=== PATIENT | female | born 1955 | race Caucasian/White ===

== ENCOUNTER → 2017-08-04 09:25 | Outpatient (CLI) | payer OTHER, MEDICAID, SELFPAY ==
[2017-08-04 10:02] LABS: Add Manual Diff / Slide Review NO; Basophils Percent Auto 0.4 % (0-2); Eosinophils Percent Auto 0.2 % (2-4); Hematocrit 37.1 % (36-46); Hemoglobin 12.6 g/dL (12.0-16.0); Lymphocytes Percent Auto 22.2 % (25-40); Mean Corpuscular HGB Conc 34.1 % (30-36); Mean Corpuscular Hemoglobin 28.3 PG (26-34); Monocytes Percent Auto 6.2 % (3-14); Neutrophils Absolute Auto 16000 /uL (3000-5900); Platelet Count 237 X10^3/uL (150-400); Red Blood Cell Count 4.47 X10^6/uL (4.0-5.2); Red Cell Distribution Width 13.7 % (11.6-14.8); White Blood Cell Count 22.5 X10^3/uL (4.5-11.0)
[2017-08-04 10:45] LABS: Vitamin D 25 Hydroxy (D3) 38.7 ng/mL (30.0-100.0)
== END ==
PROVIDERS: PCP Physician Assistant; Visit Provider Physician Assistant
DX: E55.9 Vitamin D deficiency, unspecified (principal); Z86.2 Personal history of diseases of the blood and blood-forming organs and certain disorders involving the immune mechanism
CPT/HCPCS: 36415; 82306; 85025

== ENCOUNTER → 2017-08-11 08:02 | Outpatient (CLI) | payer OTHER, MEDICAID, SELFPAY ==
--- NOTE | 2017-08-11 08:07 | DI.RAD.S_ITS ---
PROCEDURE: XR CHEST 2V INDICATIONS: Cough Elevated WBC TECHNIQUE: 2 views of the chest were acquired. COMPARISON: [facility], CHEST 2 VIEW, 11/16/2009, 10:44. [facility], CHEST 2 VIEW, 04/23/2007, 19:54. FINDINGS: Surgical changes and devices: None. Lungs and pleura: No pleural effusions or pneumothorax. Lungs are abnormal with a mild or early pneumonia right lower lobe.. Mediastinum: Mediastinal contours are normal. Heart size is normal. Bones and chest wall: No suspicious bony abnormalities. Soft tissues appear unremarkable. IMPRESSION: Right lower lobe pneumonia, no pleural effusion or central mass seen. Followup assessment for resolution is recommended by plain film after symptoms have resolved. Dictated by: Yuri Vazquez M.D. on 08/11/2017 at 8:49 Approved by: Yuri Vazquez M.D. on 08/11/2017 at 8:50
[2017-08-11 09:17] LABS: Hepatitis B Surface Antigen NEGATIVE s/c (NEGATIVE)
[2017-08-11 09:54] LABS: Hep C Virus Ab w/Reflex Quant REACTIVE s/c (NEGATIVE)
== END ==
PROVIDERS: Family Provider Physician Assistant; PCP Physician Assistant; Visit Provider Physician Assistant
DX: D72.829 Elevated white blood cell count, unspecified (principal); R05 Cough; Z86.19 Personal history of other infectious and parasitic diseases; Z87.898 Personal history of other specified conditions
CPT/HCPCS: 36415; 71046; 86803; 87340; 87350; 87522; 87902

== ENCOUNTER → 2017-09-01 07:43 | Outpatient (CLI) | payer OTHER, MEDICAID, SELFPAY ==
--- NOTE | 2017-09-01 07:46 | DI.RAD.S_ITS ---
PROCEDURE: XR CHEST 2V INDICATIONS: 61 year-old female with pneumonia. TECHNIQUE: 2 views of the chest were acquired. COMPARISON: [facility], , XR CHEST 2V, 08/11/2017, 8:28. [facility], , CHEST 2 VIEW, 11/16/2009, 10:44. [facility], CR, CHEST 2 VIEW, 04/23/2007, 19:54. FINDINGS: Surgical changes and devices: Patient is status post right breast lumpectomy. Lungs and pleura: No pleural effusions or pneumothorax. Lungs are clear. Mediastinum: Mediastinal contours are normal. Heart size is normal. Bones and chest wall: No suspicious bony abnormalities. Mild thoracic spine dextroscoliosis is again noted. Soft tissues appear unremarkable. IMPRESSION: No acute cardiopulmonary disease. Dictated by: Howard Solano M.D. on 09/01/2017 at 9:43 Approved by: Howard Solano M.D. on 09/01/2017 at 9:45
[2017-09-01 09:10] LABS: Add Manual Diff / Slide Review NO; Basophils Percent Auto 1.5 % (0-2); Hematocrit 38.4 % (36-46); Lymphocytes Percent Auto 44.9 % (25-40); Mean Corpuscular HGB Conc 33.9 % (30-36); Mean Corpuscular Hemoglobin 28.8 PG (26-34); Mean Corpuscular Volume 84.9 fL (80-100); Monocytes Percent Auto 8.5 % (3-14); Neutrophils Absolute Auto 3000 /uL (3000-5900); Neutrophils Percent Auto 42.1 % (50-75); Platelet Count 217 X10^3/uL (150-400); Red Blood Cell Count 4.52 X10^6/uL (4.0-5.2); Red Cell Distribution Width 14.4 % (11.6-14.8); White Blood Cell Count 7.2 X10^3/uL (4.5-11.0)
== END ==
PROVIDERS: Family Provider Physician Assistant; PCP Physician Assistant; Visit Provider Physician Assistant
DX: J18.9 Pneumonia, unspecified organism (principal); D72.829 Elevated white blood cell count, unspecified
CPT/HCPCS: 36415; 71046; 85025

== ENCOUNTER → 2017-11-23 16:01 | Outpatient (CLI) | payer OTHER, MEDICAID, SELFPAY | PROVIDERS: Family Provider Physician Assistant; PCP Physician Assistant; Visit Provider Physician Assistant | DX: N94.9 Unspecified condition associated with female genital organs and menstrual cycle (principal) | CPT/HCPCS: 87252 ==

== ENCOUNTER → 2017-11-25 14:08 | Outpatient (REF) | payer OTHER, MEDICAID, SELFPAY | LOC: LAB 14:08 | PROVIDERS: Family Provider Physician Assistant; PCP Physician Assistant; Visit Provider Physician Assistant | DX: N94.9 Unspecified condition associated with female genital organs and menstrual cycle (principal) ==

== ENCOUNTER → 2018-03-17 08:14 | Outpatient (CLI) | payer OTHER, MEDICAID, SELFPAY ==
--- NOTE | 2018-03-17 08:16 | DI.RAD.S_ITS ---
PROCEDURE: XR LUMBAR SPINE MIN 4V INDICATIONS: pain in right hip and low back TECHNIQUE: 5 views of the lumbar spine were acquired. COMPARISON: [facility], , L-SPINE 2-3 VIEWS, 04/20/2007, 15:32. FINDINGS: Bones: 5 nonrib-bearing vertebrae are present. There is straightening of normal lumbar lordosis. Degenerative disc disease and bilateral facet arthrosis at L2-3 through L5-S1 levels are seen. No vertebral body compression fractures. No suspicious bony lesions. Fixation hardware traversing left sacrum is seen. Soft tissues: Overlying bowel gas pattern is normal. No suspicious soft tissue calcifications. Oblique images: No pars defects. There is suggestion of bilateral neuroforaminal narrowing at L3-4 and L4-5 levels. IMPRESSION: No acute compression fracture or spondylolisthesis of lumbar spine. No gross pars defect. Suggestion of bilateral neuroforaminal narrowing and degenerative disc disease in mid to lower lumbar spine. Dictated by: Lavelle Parker M.D. on 03/17/2018 at 9:20 Approved by: Lavelle Parker M.D. on 03/17/2018 at 9:21
--- NOTE | 2018-03-17 08:16 | DI.RAD.S_ITS ---
PROCEDURE: XR HIP W PEL IF DONE LT MIN 4V INDICATIONS: pain in right hip and low back TECHNIQUE: AP pelvis with lateral view(s) of the bilateral hip(s). COMPARISON: None. FINDINGS: Bones: There is prior surgical fixation of left sacrum and left sacroiliac joint with a long fixation screw. Fixation of symphysis pubis and left superior pubic ramus is also seen. There is fractured fixation screw traversing left superior pubic ramus near symphysis pubis. Healed fractures involving left superior and inferior pubic rami are seen. No gross acute fracture is noted. No hip dislocation or avascular necrosis of femoral head. No suspicious bony lesions. Soft tissues: The visualized bowel gas pattern is normal. No suspicious soft tissue calcifications. IMPRESSION: Fractured fixation screw traversing left superior pubic ramus near symphysis pubis. Healed left superior and inferior pubic rami fracture. No gross acute fracture is seen. Fixation hardware traversing left sacrum and left sacroiliac joint is intact. Dictated by: Lavelle Parker M.D. on 03/17/2018 at 9:17 Approved by: Lavelle Parker M.D. on 03/17/2018 at 9:20
== END ==
PROVIDERS: Family Provider Physician Assistant; PCP Physician Assistant; Visit Provider Physician Assistant
DX: T84.218A Breakdown (mechanical) of internal fixation device of other bones, initial encounter (principal); M25.551 Pain in right hip; M54.5 Low back pain
CPT/HCPCS: 72110; 73522

== ENCOUNTER → 2018-05-25 12:41 | Outpatient (CLI) | payer OTHER, MEDICAID, SELFPAY ==
--- NOTE | 2018-05-25 12:42 | DI.MG.S_ITS ---
BILATERAL DIGITAL SCREENING MAMMOGRAM 3D/2D WITH CAD POST LUMPECTOMY: 05/25/2018 CLINICAL: Routine screening. Personal history of right breast cancer. Comparison is made to exams dated: 10/08/2015 mammogram, 02/26/2012 mammogram, and 01/06/2011 mammogram - [facility]. The tissue of both breasts is extremely dense, which lowers the sensitivity of mammography. Current study was also evaluated with a Computer Aided Detection (CAD) system. No significant masses, calcifications, or other findings are seen in either breast. There has been no significant interval change. IMPRESSION: NEGATIVE There is no mammographic evidence of malignancy. A 1 year screening mammogram is recommended. This exam was interpreted at Station ID: [id number]. NOTE: For mammograms, a report in lay terms will be sent to the patient. Approximately 15% of breast malignancies will not be visualized mammographically. In the management of a palpable breast mass, a negative mammogram must not discourage biopsy of a clinically suspicious lesion. Electronically Signed By: Makayla krishnan/maryellen:05/25/2018 13:16:28 letter sent: Normal Exam ACR BI-RADS Category 1: Negative [id number]
== END ==
PROVIDERS: Family Provider Physician Assistant; PCP Physician Assistant; Visit Provider Physician Assistant
DX: Z12.31 Encounter for screening mammogram for malignant neoplasm of breast (principal); Z85.3 Personal history of malignant neoplasm of breast
CPT/HCPCS: 77063; 77067

== ENCOUNTER 2018-07-20 12:15 | Outpatient (RCR) | payer OTHER, MEDICAID, SELFPAY ==
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
--- NOTE | 2018-06-08 15:03 | PT.OPPOC ---
Current Diagnoses Trochanteric bursitis, right hip (06/08/18) Iliotibial band syndrome, right leg (06/08/18) Provider Visit Care Team Role Provider Type Berenice Hester PA-C Family Provider Advanced Manager [employer] Primary Care Provider Specialty: Medical Address: [address] [place] [address], [address] Email: [email or web address] Azeem Flores MD Attending Provider Physician Specialty: Orthopedic Surgery Address: [address] [place] [address], [address] Email: [email or web address] Plan Of Care PT-OP-T Assessment and Plan Start: 06/07/18 16:44 Freq: Status: Active Protocol: Document 06/08/18 10:33 [facility] (Rec: 06/08/18 15:03 [facility] [id number]) Physical Therapy Assessment Rehab Potential Rehabilitation Potential Good Evaluation Complexity Number of Personal Factors/Comorbidities 3 or More Number of Body Systems Impaired 4 or More Clinical Presentation at Evaluation Evolving Impairments Impairments Activity Tolerance Balance Functional Activities Functional Mobility Gait Pain Posture ROM Soft Tissue Mobility Strength Goals ROM Housekeeping Manager Goal (LTG) Pt will have equal ROM and flexibility in B hips allowing her to do typical ADLs without pain. LTG Duration 08/08/18 strength Short Term Goal (STG) Pt will be indep with HEP STG Duration 07/08/18 Housekeeping Manager Goal (LTG) Pt will have 5/5 LE strength in order to allow her to return to typical activities including light gardening. LTG Duration 08/08/18 walking Short Term Goal (STG) Pt will be able to walk 2 miles consistently without having to stop d/t hip catching. STG Duration 07/08/18 Mcc Goal (LTG) Pt will be able to walk on treadmill up to 4-5 miles like she typically would with no greater than 1/10 pain. LTG Duration 08/08/18 Assessment Summary Assessment Pt presents with R hip and groin pain and c/o of R LB/SI pain. It is likely that pain stems from pelvic dysfunction and soft tissue restrictions in pelvis & hips. She would benefit from skilled PT in order to help manage pain and improve functional ability. Physical Therapy Plan Frequency and Duration Frequency of Treatment 2x/Week Duration of Treatment 2 months Plan of Care Start Date 06/08/18 Plan of Care End Date 08/08/18 Therapeutic Interventions Therapeutic Interventions Aquatic Therapy Balance Training Gait Training Home Exercise Program Joint Mobilizations Manual Therapy Neuromuscular Re-education Patient/Caregiver Education Self-Care/Home Management Soft Tissue Mobilization Taping Therapeutic Activities Therapeutic Exercises Modalities Cold Pack/Ice Massage Electric Stimulation Hot Packs Infrared Therapy Iontophoresis Traction- Mechanical Ultrasound Next Visit Focus/Plan Next Note Type Treatment Note Next Visit Plan core stability exercises, HS flexibility R, manual STM Plan of Care Dates Plan of Care Start Date 06/08/18 Plan of Care End Date 08/08/18 Please Sign and Return: I have reviewed this Plan of Care and certify that the skilled therapy services above are required to meet the patient?s needs. Physician Signature Date Printed Name and Credentials Clinical Instructor Signature Printed Name and Credentials
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
== END 2019-01-05 16:15 | disposition home or self-care (01) ==
LOC: PHYS 12:15
PROVIDERS: Family Provider Physician Assistant; PCP Physician Assistant; Visit Provider Orthopaedic Surgery
DX: M70.61 Trochanteric bursitis, right hip (principal); M76.31 Iliotibial band syndrome, right leg
CPT/HCPCS: 97110; 97140; 97162

== ENCOUNTER → 2019-01-17 11:20 | Outpatient (CLI) | payer OTHER, MEDICAID, SELFPAY ==
[2019-01-17 11:28] LABS: Bacteria Urine None Seen
[2019-01-17 14:45] LABS: Appearance Urine UA CLEAR; Bilirubin Urine UA NEGATIVE (NEGATIVE); Color Urine UA YELLOW; Glucose Urine UA NEGATIVE (Negative); Ketones Urine UA NEGATIVE (NEGATIVE); Leukocyte Esterase Urine UA TRACE (NEGATIVE); Nitrite Urine UA NEGATIVE (Negative); Occult Blood Urine UA NEGATIVE (Negative); Protein Urine UA NEGATIVE (Negative); Urobilinogen Urine UA 0.2 E.U./dL (0.2)
[2019-01-17 15:03] LABS: pH Urine UA 7.5 (4.5-8.0)
[2019-01-17 15:41] LABS: Culture Indicated Urine Specimen Cultured; RBC Urine 0-1/HPF (0-5/HPF); WBC Urine 5-10/HPF (0-5/HPF)
== END ==
PROVIDERS: PCP Physician Assistant; Visit Provider Physician Assistant
DX: R30.0 Dysuria (principal)
CPT/HCPCS: 81001; 87077; 87086; 87186

== ENCOUNTER → 2019-01-27 09:28 | Outpatient (CLI) | payer OTHER, MEDICAID, SELFPAY ==
--- NOTE | 2019-01-27 09:30 | DI.RAD.S_ITS ---
PROCEDURE: XR SHOULDER RT MIN 2V INDICATIONS: pain to AC joint, dec rom, r/o bony abnormality TECHNIQUE: 3 views of the shoulder were acquired. COMPARISON: [facility], CR, XR CHEST 2V, 08/11/2017, 8:28. [facility], CR, XR CHEST 2V, 09/01/2017, 7:48. [facility], CR, SHOULDER MIN 2VW (RT), 08/14/2011, 14:36. [facility], CR, SHOULDER MINIMUM 2 VIEW LEFT, 02/26/2009, 9:20. FINDINGS: Bones: No fractures or dislocations. No suspicious bony lesions. Visualized ribs appear intact. Slight superior subluxation of the lateral clavicle relative to the acromion, although technically age indeterminate. There is moderate AC joint degeneration. Glenohumeral degenerative changes are also noted. Soft tissues: No suspicious soft tissue calcifications. IMPRESSION: Slight superior subluxation of lateral clavicle relative to acromion although technically age indeterminate. Degenerative changes as above. No fracture Dictated by: Keaton Molina M.D. on 01/27/2019 at 9:50 Approved by: Keaton Molina M.D. on 01/27/2019 at 9:53
== END ==
PROVIDERS: PCP Physician Assistant; Visit Provider Physician Assistant
DX: M25.511 Pain in right shoulder (principal); G89.29 Other chronic pain
CPT/HCPCS: 73030

== ENCOUNTER → 2019-09-06 06:54 | Outpatient (CLI) | payer OTHER, MEDICAID, SELFPAY ==
[2019-09-06 08:13] LABS: Add Manual Diff / Slide Review NO; Basophils Absolute Auto 100 /uL (0-100); Eosinophils Absolute Auto 200 /uL (0-450); Eosinophils Percent Auto 2.2 % (2-4); Hematocrit 38.7 % (36-46); Hemoglobin 13.4 g/dL (12.0-16.0); Lymphocytes Absolute Auto 4500 /uL (1100-4500); Lymphocytes Percent Auto 50.5 % (25-40); Mean Corpuscular HGB Conc 34.6 % (30-36); Mean Corpuscular Hemoglobin 28.9 PG (26-34); Mean Corpuscular Volume 83.5 fL (80-100); Monocytes Absolute Auto 800 /uL (0-900); Monocytes Percent Auto 8.6 % (3-14); Neutrophils Absolute Auto 3400 /uL (1500-7000); Neutrophils Percent Auto 37.7 % (50-75); Platelet Count 206 X10^3/uL (150-400); Red Blood Cell Count 4.63 X10^6/uL (4.0-5.2); Red Cell Distribution Width 14.5 % (11.6-14.8); White Blood Cell Count 8.9 X10^3/uL (4.5-11.0)
[2019-09-06 08:46] LABS: Alanine Aminotransferase 23 IU/L (<35); Albumin 4.4 g/dL (3.5-5.0); Albumin Globulin Ratio 1.6 (1.0-2.8); Alkaline Phosphatase 57 U/L (38-126); Aspartate Aminotransferase 33 IU/L (14-36); BUN Creatinine Ratio 17.6 (6-22); Bilirubin Total 0.5 mg/dL (0.2-1.3); Blood Urea Nitrogen 12 mg/dL (7-17); Calcium 9.9 mg/dL (8.4-10.2); Carbon Dioxide 26 mmol/L (22-32); Chloride 102 mmol/L (98-107); Cholesterol 202 mg/dL (140-199); Estimated Glomerular Filt Rate > 60.0 mL/min (>60); Globulin 2.8 g/dL (1.7-4.1); Glucose 105 mg/dL (80-110); HDL Cholesterol 54 mg/dL (40-60); HEMOLYSIS < 15 (0-50); LDL Cholesterol Calculated 135 mg/dL (<100); Potassium 4.3 mmol/L (3.4-5.1); Sodium 137 mmol/L (137-145); Total Protein 7.2 g/dL (6.3-8.2); Triglycerides 65 mg/dL (35-150)
== END ==
PROVIDERS: PCP Internal Medicine; Referring Provider Internal Medicine; Visit Provider Internal Medicine
DX: E78.5 Hyperlipidemia, unspecified (principal); K21.9 Gastro-esophageal reflux disease without esophagitis
CPT/HCPCS: 36415; 80053; 80061; 85025

== ENCOUNTER → 2019-09-09 08:12 | Outpatient (CLI) | payer OTHER, MEDICAID, SELFPAY ==
[2019-09-09 22:29] LABS: COVID19 Sendout Not Detected (Not Detect)
== END ==
PROVIDERS: PCP Internal Medicine; Visit Provider Nurse Practitioner
DX: Z01.812 Encounter for preprocedural laboratory examination (principal)
CPT/HCPCS: 87635

== ENCOUNTER 2019-09-12 08:09 | Day surgery (SDC) | payer OTHER, MEDICAID, SELFPAY ==
[2019-09-12 08:41] VITALS: BP 116/74; PULSE 69; RESP 18; TEMP 36.4; O2SAT 99; BMI 22.6
--- NOTE | 2019-09-12 08:58 | PM.HP.1 ---
History of Present Illness History of Present Illness Date Patient Seen: 09/12/19 Time Patient Seen: 09:06 Chief complaint: [id number] Narrative: The patient presents for colorectal sreening. They had a previous colonoscopy 5 years ago that was significant for an adenomatous polyp which was endoscopically removed. No personal or family history of colon cancer. On further history denies any recent gastrointestinal symptoms. No nausea, vomiting, abdominal pain, loss of appetite, unexplained weight loss, change in bowel habits, diarrhea, constipation, melena, hematochezia, or bright red blood per rectum. Patient History Medical History Bipolar disorder (Chronic Unknown) Chronic back pain (Chronic Unknown) Colon polyps (Resolved Unknown) Depression (Chronic Unknown) GERD (gastroesophageal reflux disease) (Chronic Unknown) H/O adenomatous polyp of colon (Inactive) Hx of hepatitis C (Chronic Unknown) Hx of substance abuse (Resolved Unknown) Insomnia (Chronic Unknown) Osteopenia (Chronic 2007) PTSD (post-traumatic stress disorder) (Chronic Unknown) Surgical History History of bladder suspension procedure Hx of shoulder surgery (Resolved 2001) Status post hysterectomy Family & Social History Social History: household members friend(s) Tobacco & Substance use: Tobacco type e-cigarettes Smoking Status Current every day smoker alcohol intake former Substance Use Type marijuana Meds Home Medications and Allergies Home Medications Medication Instructions Recorded Confirmed Type buprenorphine-naloxone [Suboxone] See Rx Instructions .ROUTE 03/18/12 09/12/19 History .COMPLEX #0 hydroxyzine pamoate [Vistaril] 25 - 50 mg PO HSP PRN #45 cap 01/19/17 09/12/19 Rx meloxicam 15 mg tablet 15 mg PO QDAYP PRN #30 tab 03/30/18 09/12/19 Rx cholecalciferol (vitamin D3) 25 2,000 unit PO QDAY #60 tab 06/15/19 09/12/19 Rx mcg (1,000 unit) tablet aripiprazole 10 mg tablet 10 mg PO QDAY #90 tab 08/09/19 09/12/19 Rx bupropion HCl 300 mg 24 hr tablet, 300 mg PO DAILY #90 tab 08/09/19 09/12/19 Rx extended release raloxifene 60 mg tablet 60 mg PO QDAY #90 tab 08/09/19 09/12/19 Rx omeprazole 20 mg PO PRN PRN 09/12/19 09/12/19 History Allergies Allergy/AdvReac Type Severity Reaction Status Date / Time methocarbamol [METHOCARBAMOL] Allergy Severe sob, Verified 09/12/19 08:37 itchy, edema Penicillins [PENICILLINS] Allergy Severe swelling, Verified 09/12/19 08:37 itching, hives Review of Systems Review of Systems Narrative: A 10 point review of systems is negative except as noted in the HPI Exam Vital Signs (past 8 hours): - 09/12/19 08:41 Temperature 97.6 F Pulse Rate 69 Respiratory Rate 18 Blood Pressure 116/74 Pulse Oximetry 99 Oxygen Delivery Method Room Air Narrative Exam Narrative: General-no acute distress, well nourished HEENT-moist mucous membranes, no scleral icterus Neck-supple, no lymphadenopathy Chest- non labored respirations, clear to auscultation bilaterally Cardiac-regular rate no peripheral edema Abdomen-soft, nontender, non distended Extremities-warm, well perfused Neurological-alert and oriented, no focal deficits Assessment & Plan Assessment and plan (1) Screening for colon cancer: Status: Acute Assessment & Plan narrative: The patient requires colorectal screening and colonoscopy is recommended. Technical details were discussed. Risks, benefits, alternatives explained. Risks including but not limited to myocardial infarction, aspiration, bleeding, pain, missed lesion, incomplete examination, need for further radiographic studies, colonic perforation, and need for major abdominal surgery were discussed. All questions were answered to their satisfaction, and they are in agreement with this plan. COVID-19 COVID-19 status: Negative Result date/Date tested (Pos, Neg/Pending): 09/09/19
[2019-09-12] MEDS: LACTATED RINGERS 1,000 ML 200 ML IV (09:01)
[2019-09-12] MEDS: fentaNYL 250 MCG/5 ML INJ IV ×2 (09:12→09:17)
[2019-09-12] MEDS: MIDAZOLAM 5 MG/5 ML VIAL IV ×2 (09:12→09:17)
--- NOTE | 2019-09-12 09:22 | PM.OP.ENDO ---
Operative Date/Time/Diagnoses Date of procedure: 09/12/19 Time of procedure: 09:22 Pre-op diagnosis: Screening colonoscopy Post-op diagnosis: same Procedure & Clinicians Study performed: Aborted colonoscopy Same procedure as scheduled: Yes Indications: 63-year-old female with previous colonoscopy 5 years ago demonstrated an adenomatous polyp presents for routine screening. Surgeon: Pierre De La Cruz Procedure Notes SCOAP/Timeout: Performed Procedure in detail: Patient placed in left lateral decubitus position. Time out was performed. Procedural sedation was administered with Versed and Fentanyl. A rectal exam demonstrated no external hemorrhoids no internal masses. Colonoscopy scope was placed into the rectum and advanced through the colon. Despite procedural sedation with Versed and fentanyl were unable to get the patient comfortable enough to proceed beyond the sigmoid colon. She has a history of substance abuse is currently on Suboxone and the sedation method was ineffective. She is extremely uncomfortable and chose to proceed no further. Scope withdrawal time: Not applicable Sedation minutes: 15 Specimen(s): none sent Complications: none Impression: Incomplete colonoscopy Post-procedure Plan for aftercare: Barium enema Disposition: same day surgery
[2019-09-12 09:25] VITALS: BP 97/64; PULSE 93; RESP 16; TEMP 36.5; O2SAT 96
[2019-09-12 09:30] VITALS: BP 96/63; PULSE 92; RESP 16; O2SAT 97
[2019-09-12 09:35] VITALS: BP 96/63; PULSE 95; RESP 16; O2SAT 94
[2019-09-12 09:45] VITALS: BP 104/66; PULSE 95; RESP 17; O2SAT 96
[2019-09-12 10:05] VITALS: BP 106/71; PULSE 61; RESP 14; TEMP 36.7; O2SAT 95
== END 2019-09-12 10:15 | disposition home or self-care (01) ==
PROVIDERS: PCP Internal Medicine; Referring Provider Surgery; Visit Provider Surgery
PROC: 0DJD8ZZ Inspection of Lower Intestinal Tract, Via Natural or Artificial Opening Endoscopic (ICD-10-PCS; CPT 45378; principal; 2019-09-12 09:15)
DX: Z12.11 Encounter for screening for malignant neoplasm of colon (principal); Z86.010 Personal history of colon polyps; Z72.0 Tobacco use; Z53.09 Procedure and treatment not carried out because of other contraindication
CPT/HCPCS: 45378; 99152; J2250; J3010

== ENCOUNTER → 2019-10-04 09:33 | Outpatient (CLI) | payer OTHER, MEDICAID, SELFPAY ==
--- NOTE | 2019-10-04 09:34 | DI.RAD.S_ITS ---
PROCEDURE: FL BARIUM ENEMA W AIR CONTRAST INDICATIONS: Incomplete colonoscopy COMPARISON: [facility] [place], CR, XR SHOULDER 2+ VIEWS RIGHT, 04/28/2019, 12:02. FINDINGS: KUB: Pre-procedural security incident handler film demonstrates a normal bowel gas pattern. No suspicious abdominal calcifications. Visualized solid organ contours are normal in size. No suspicious bony lesions. There is a surgical screws traversing the left iliac bone and sacrum. Hold left pelvic fracture with internal fixation. A surgical screw is seen traversing the pubic symphysis, which is fractured. Colon: There is adequate air-contrast opacification from the rectum to the cecum. No strictures, ulcers, polyps, or masses are seen. Haustral folds are normal in thickness throughout. A few sigmoid diverticula. IMPRESSION: 1. No polypoid masses identified. 2. A few colonic diverticula in sigmoid colon are noted. 3. Old left pelvic fracture. The fixation screw is fractured. Dictated by: Rajeev Tristan M.D. on 10/04/2019 at 12:38 Approved by: Rajeev Tristan M.D. on 10/04/2019 at 12:42
== END ==
PROVIDERS: PCP Internal Medicine; Referring Provider Surgery; Visit Provider Surgery
DX: Z12.11 Encounter for screening for malignant neoplasm of colon (principal); K57.30 Diverticulosis of large intestine without perforation or abscess without bleeding
CPT/HCPCS: 74280

== ENCOUNTER → 2020-05-23 09:51 | Outpatient (CLI) | payer OTHER, MEDICAID, SELFPAY ==
[2020-05-23] MEDS: COVID-19 VACC #1, MRNA(MOD) 100 MCG/0.5 ML VIAL IM (10:04)
== END ==
PROVIDERS: PCP Internal Medicine; Visit Provider Internal Medicine
DX: Z23 Encounter for immunization (principal)
CPT/HCPCS: 0011A; 91301

== ENCOUNTER → 2020-06-20 08:58 | Outpatient (CLI) | payer OTHER, MEDICAID, SELFPAY ==
[2020-06-20] MEDS: COVID-19 VACC #2, MRNA(MOD) 100 MCG/0.5 ML VIAL IM (09:04)
== END ==
PROVIDERS: PCP Internal Medicine; Visit Provider Internal Medicine
DX: Z23 Encounter for immunization (principal)
CPT/HCPCS: 0012A; 91301

== ENCOUNTER → 2020-06-28 12:02 | Outpatient (CLI) | payer OTHER, MEDICAID, SELFPAY ==
--- NOTE | 2020-06-28 12:03 | DI.MG.S_ITS ---
BILATERAL DIGITAL DIAGNOSTIC MAMMOGRAM 3D/2D POST LUMPECTOMY: 06/28/2020 CLINICAL: Left breast pain. Comparison is made to exams dated: 05/25/2018 mammogram, 10/08/2015 mammogram, 02/26/2012 mammogram, and 01/06/2011 mammogram - [facility]. The tissue of both breasts is extremely dense, which lowers the sensitivity of mammography. No significant masses, calcifications, or other findings are seen in either breast. Post operative findings in the right breast. IMPRESSION: INCOMPLETE: NEEDS ADDITIONAL IMAGING EVALUATION No mammographic evidence of malignancy. A targeted ultrasound of the lateral left breast region of pain is recommended and will immediately follow. This exam was interpreted at Station ID: [id number]. NOTE: For mammograms, a report in lay terms will be sent to the patient. Approximately 15% of breast malignancies will not be visualized mammographically. In the management of a palpable breast mass, a negative mammogram must not discourage biopsy of a clinically suspicious lesion. Electronically Signed By: Jeremías Montoya M.D. slc/:06/28/2020 12:47:24 ACR BI-RADS Category 0: Incomplete [id number]
--- NOTE | 2020-06-28 12:03 | DI.US.S_ITS ---
LIMITED ULTRASOUND OF LEFT BREAST: 06/28/2020 CLINICAL: Patient returns today to evaluate a focal asymmetry in the left breast. Comparison is made to exams dated: 06/28/2020 mammogram, 05/25/2018 mammogram, 10/08/2015 mammogram, and 02/26/2012 mammogram - [facility]. Color flow and real-time ultrasound of the left breast outer aspect were performed. Mary scale images of the real-time examination were reviewed. No significant abnormalities were seen sonographically in the lateral left breast in the region of pain. IMPRESSION: NEGATIVE There is no sonographic evidence of malignancy. A 1 year screening mammogram is recommended. Exam findings were conveyed to the patient. Patient is advised to monitor for significant change. Clinical follow-up as needed. This exam was interpreted at Station ID: [id number]. Electronically Signed By: Jeremías Montoya M.D. slc/:06/28/2020 15:36:11 letter sent: Normal Exam Ultrasound BI-RADS: 1 Negative
== END ==
PROVIDERS: PCP Internal Medicine; Referring Provider Nurse Practitioner Family; Visit Provider Nurse Practitioner Family
DX: R92.8 Other abnormal and inconclusive findings on diagnostic imaging of breast (principal); N64.4 Mastodynia
CPT/HCPCS: 76642; 77066; G0279

== ENCOUNTER → 2020-07-03 11:15 | Outpatient (CLI) | payer OTHER, MEDICAID, SELFPAY ==
[2020-07-03 11:52] LABS: Add Manual Diff / Slide Review NO; Basophils Absolute Auto 100 /uL (0-100); Basophils Percent Auto 0.8 % (0-2); Eosinophils Absolute Auto 0 /uL (0-450); Eosinophils Percent Auto 0.3 % (2-4); Hematocrit 37.3 % (36-46); Hemoglobin 12.5 g/dL (12.0-16.0); Lymphocytes Absolute Auto 2300 /uL (1100-4500); Lymphocytes Percent Auto 30.5 % (25-40); Mean Corpuscular HGB Conc 33.6 % (30-36); Mean Corpuscular Hemoglobin 28.3 PG (26-34); Mean Corpuscular Volume 84.3 fL (80-100); Monocytes Absolute Auto 500 /uL (0-900); Monocytes Percent Auto 7.1 % (3-14); Neutrophils Absolute Auto 4700 /uL (1500-7000); Neutrophils Percent Auto 61.3 % (50-75); Platelet Count 208 X10^3/uL (150-400); Red Blood Cell Count 4.43 X10^6/uL (4.0-5.2); Red Cell Distribution Width 15.1 % (11.6-14.8); White Blood Cell Count 7.7 X10^3/uL (4.5-11.0)
[2020-07-03 12:16] LABS: Erythrocyte Sedimentation Rate 7 MM/HR (0-20)
[2020-07-03 12:43] LABS: Alanine Aminotransferase 22 IU/L (<35); Albumin 4.4 g/dL (3.5-5.0); Albumin Globulin Ratio 1.5 (1.0-2.8); Alkaline Phosphatase 59 U/L (38-126); Amylase 79 U/L (30-110); Aspartate Aminotransferase 34 IU/L (14-36); Bilirubin Total 0.5 mg/dL (0.2-1.3); Blood Urea Nitrogen 12 mg/dL (7-17); C-Reactive Protein Quant < 0.5 mg/dL (<1.0); Calcium 9.8 mg/dL (8.4-10.2); Carbon Dioxide 28 mmol/L (22-32); Chloride 100 mmol/L (98-107); Creatine Kinase 42 U/L (30-135); Estimated Glomerular Filt Rate > 60.0 mL/min (>60); Glucose 109 mg/dL (80-110); HEMOLYSIS < 15 (0-50); Lipase 39 U/L (23-300); Magnesium 1.6 mg/dL (1.6-2.3); Potassium 4.2 mmol/L (3.4-5.1); Sodium 136 mmol/L (137-145); Total Protein 7.4 g/dL (6.3-8.2)
[2020-07-03 13:02] LABS: Thyroid Stimulating Hormone 0.928 uIU/mL (0.47-4.68)
[2020-07-03 13:16] LABS: Free T4, Direct Thyroxine 1.27 ng/dL (0.78-2.19)
== END ==
PROVIDERS: PCP Internal Medicine; Referring Provider Internal Medicine; Visit Provider Internal Medicine
DX: K21.9 Gastro-esophageal reflux disease without esophagitis (principal); M62.838 Other muscle spasm; K57.30 Diverticulosis of large intestine without perforation or abscess without bleeding; R11.2 Nausea with vomiting, unspecified; R63.4 Abnormal weight loss; Z86.19 Personal history of other infectious and parasitic diseases
CPT/HCPCS: 36415; 80053; 82150; 82550; 83690; 83735; 84439; 84443; 85025; 85651; 86140

== ENCOUNTER → 2020-07-17 08:23 | Outpatient (CLI) | payer OTHER, MEDICAID, SELFPAY ==
--- NOTE | 2020-07-17 09:09 | DI.CT.S_ITS ---
PROCEDURE: CT ABDOMEN PELVIS W CON INDICATIONS: Weight Loss, N/V TECHNIQUE: After the administration of oral and intravenous contrast, 5 mm thick sections acquired from the diaphragms to the symphysis. 5 mm thick coronal and sagittal reformats were performed. For radiation dose reduction, the following was used: automated exposure control, adjustment of mA and/or kV according to patient size. COMPARISON: [facility], CT, ABDOMEN/PELVIS WITHOUT CONTRAST, 08/17/2007, 7:33. FINDINGS: Image quality: Portions of the lower pelvis are suboptimally evaluated secondary to metallic streak artifact from SI joint and pubic ramus fixation screws. ABDOMEN: Lung bases: Lung bases are clear. Heart size is enlarged. Solid organs: Liver is enlarged with steatosis. Gallbladder is unremarkable. Biliary system is non-dilated. Pancreas enhances normally. Spleen is normal in size and enhancement. No adrenal nodules. Kidneys are normal in size and enhancement, without hydronephrosis. Peritoneum and bowel: Small bowel, and colon loops are normal in caliber and wall thickness. There is marked thickening of the pylorus without proximal obstruction. No free fluid or air. Significant colonic stool is present. Nodes and vessels: No retroperitoneal or mesenteric adenopathy. Aorta and inferior vena cava are normal in caliber. Miscellaneous: Fat containing ventral hernia. PELVIS: Genitourinary: Bladder wall thickness is normal. Miscellaneous: No inguinal hernias or adenopathy. Bones: No suspicious bony lesions. No vertebral body compression fractures. IMPRESSION: 1. Mild appearance of pylorus thickening. While this can be seen with peristalsis, if clinical concern exists for mass, upper GI or endoscopy may be obtained for further evaluation. 2. Significant stool is present. No obstruction. Dictated by: Whit Lua M.D. on 07/17/2020 at 10:37 Approved by: Whit Lua M.D. on 07/17/2020 at 11:26
== END ==
PROVIDERS: PCP Internal Medicine; Referring Provider Internal Medicine; Visit Provider Internal Medicine
DX: R63.4 Abnormal weight loss (principal); R11.2 Nausea with vomiting, unspecified
CPT/HCPCS: 74177

== ENCOUNTER → 2020-12-10 08:10 | Outpatient (CLI) | payer OTHER, MEDICAID, SELFPAY ==
[2020-12-10 11:19] LABS: COVID19 -Nasal RAPID Negative (Negative)
== END ==
PROVIDERS: PCP Internal Medicine; Visit Provider Nurse Practitioner Family
DX: Z20.822 Contact with and (suspected) exposure to COVID-19 (principal); Z01.812 Encounter for preprocedural laboratory examination
CPT/HCPCS: 87635; C9803

== ENCOUNTER 2020-12-11 14:16 | Day surgery (SDC) | payer OTHER, MEDICAID, SELFPAY ==
--- NOTE | 2020-12-11 | PATH_ITS ---
[facility] Accession Number: [id number] . 01 Material submitted: . PART A: duodenum - DUODENUM PART B: stomach - ANTRUM PART C: stomach - GASTRIC BODY PART D: esophagus - DISTAL ESOPHAGUS . 02 Diagnosis: A. Duodenum, Biopsy: Duodenal mucosa with no diagnostic abnormality. Negative for active inflammation, features of sprue, dysplasia, or malignancy. . B. Stomach, Antrum, Biopsy: Antral mucosa with mild chronic gastritis and intestinal metaplasia. Negative for Helicobacter by immunohistochemistry. Negative for dysplasia and malignancy. . C. Stomach, Body, Biopsy: Body-type mucosa with mild chronic gastritis. Negative for Helicobacter by immunohistochemistry. Negative for intestinal metaplasia. Negative for dysplasia and malignancy. . D. 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 Additional levels were examined. Negative for dysplasia and malignancy. [facility] 12/14/2020 1509 Local . 02 Electronically signed: . Imelda Herrera MD, Pathologist NPI- [id number] . 01 Gross description: . Part A: DUODENUM: Received in formalin are 2 fragment(s) of sheikh, soft tissue measuring 0.5 x 0.2 x 0.1 cm to 0.2 x 0.2 x 0.1 cm submitted entirely in 1 cassette(s) Part B: ANTRUM: Received in formalin is 1 fragment(s) of sheikh, soft tissue measuring 0.4 x 0.1 x 0.1 cm submitted entirely in 1 cassette(s) Part C: GASTRIC BODY: Received in formalin are 2 fragment(s) of sheikh, soft tissue measuring 0.2 x 0.1 x 0.1 cm to 0.2 x 0.1 x 0.1 cm submitted entirely in 1 cassette(s) Part D: DISTAL ESOPHAGUS: Received in formalin is 1 fragment(s) of sheikh, soft tissue measuring 0.3 x 0.2 x 0.1 cm submitted entirely in 1 cassette(s) /MYNOR 12/12/2020 0242 Local . 02 Microscopic: . B-C) Immunohistochemical stains were performed on blocks B and C in order to evaluate for Helicobacter organisms and are both negative. The control stain showed appropriate reactivity. . D) Additional levels were examined. . * This test was developed and its performance characteristics determined by [facility]. It has not been cleared or approved by the U.S. Food and Drug Administration. The FDA has determined that such clearance or approval is not necessary. This test is used for clinical purposes. It should not be regarded as investigational or for research. . 02 Pathologist provided ICD-10: K22.70 . 02 CPT . 459739, 491620, 646264, 140282, U09780 Performed at: 01 [facility] [address] [facility], [place], [place] [id number] MD Zoran Fontana MD Phone: [phone] Performed at: 02 [facility] [address] [place], [place] [id number] MD Imelda Herrera MD Phone: [phone]
[2020-12-11 14:37] VITALS: BP 115/77; PULSE 66; RESP 16; TEMP 37.3; O2SAT 98; BMI 18.0
--- NOTE | 2020-12-11 14:44 | PM.HP.1 ---
History of Present Illness History of Present Illness Date Patient Seen: 12/11/20 Time Patient Seen: 14:45 Chief complaint: SDC Narrative: I reviewed my office note from October 01, 2020 no significant changes. Patient History Medical History Bipolar disorder (Unknown) Breast pain, left (05/2020) Chronic back pain (Unknown) Colon polyps (Unknown) Depression (Unknown) Diverticular disease of colon GERD (gastroesophageal reflux disease) (Unknown) H/O adenomatous polyp of colon Hx of hepatitis C (Unknown) Hx of substance abuse (Unknown) Insomnia (Unknown) Osteopenia (2007) Personal history of breast cancer PTSD (post-traumatic stress disorder) (Unknown) Unintentional weight loss Surgical History History of bladder suspension procedure Hx of shoulder surgery (2001) Status post hysterectomy Family & Social History Social History: household members friend(s) Tobacco & Substance use: Tobacco type e-cigarettes Smoking Status Current every day smoker alcohol intake former Substance Use Type marijuana Meds Home Medications and Allergies Home Medications Medication Instructions Recorded Confirmed Type buprenorphine 8 mg-naloxone 2 mg 18 film SUBLINGUAL DAILY #0 03/18/12 12/11/20 History sublingual film (Suboxone) omeprazole 20 mg capsule,delayed 20 mg PO PRN PRN 09/12/19 12/11/20 History release meloxicam 15 mg tablet 15 mg PO QDAYP PRN #30 tab 12/26/19 12/11/20 Rx cholecalciferol (vitamin D3) 25 2,000 unit PO QDAY #60 tab 08/13/20 12/11/20 Rx mcg (1,000 unit) tablet (Vitamin D3) raloxifene 60 mg tablet (Evista) 60 mg PO QDAY #90 tab 08/28/20 12/11/20 Rx ondansetron 4 mg disintegrating 4 mg PO DAILY PRN #60 tab 11/20/20 12/11/20 Rx tablet hydroxyzine pamoate 25 mg capsule 25 - 50 mg PO HSP PRN 12/11/20 12/11/20 History (Vistaril) Allergies Allergy/AdvReac Type Severity Reaction Status Date / Time methocarbamol [METHOCARBAMOL] Allergy Severe sob, Verified 12/11/20 14:10 itchy, edema Penicillins [PENICILLINS] Allergy Severe swelling, Verified 12/11/20 14:10 itching, hives Review of Systems Review of Systems ROS: Yes All systems reviewed with the patient and are negative except as otherwise documented Exam Const General: cooperative and comfortable Orientation: alert HENMT Head: normocephalic Ears: external ears normal Nose: external nose normal Face and sinus: normal facial exam Mouth: oral mucosae normal Eyes General: appearance normal, both eyes and all related structures Neck Neck: normal visual inspection Chest Chest: normal inspection of the chest Resp Effort & Inspection: normal respiratory effort Auscultation: clear to auscultation bilaterally Cardio Rate: regular rate Rhythm: regular rhythm Heart Sounds: no murmurs GI Inspection: normal to inspection Palpation: soft and No tender Auscultation: normal bowel sounds Skin General: no rashes or lesions noted and No jaundice Neuro General: patient alert and moves all extremities Cognition: normal cognition Speech: speech normal Extrem General: no pedal edema Psych Appearance: grossly normal Assessment & Plan Assessment & Plan narrative: 64-year-old female with unintentional weight loss and abnormal pylorus on imaging. EGD is thus pursued today. Time Spent With Patient Critical Care time: I spent a total of [] minutes of critical care time on this patient's care today; this time is exclusive of procedural time.
--- NOTE | 2020-12-11 14:46 | PM.PREOP ---
Pre-operative Note COVID-19 COVID-19 status: Negative Result date/Date tested (Pos, Neg/Pending): 12/10/20 Interval Note History & Physical reviewed/Exam performed by Physician: Yes Changes to H&P: No ASA Class (for procedural sedation): III
[2020-12-11] MEDS: SODIUM CHLORIDE 0.9% 1,000 ML 84 ML IV (15:00)
[2020-12-11 15:08] VITALS: BMI 18.0
--- NOTE | 2020-12-11 15:24 | PM.OP.EGD ---
Operative Date/Time/Diagnoses Date of procedure: 12/11/20 Time of procedure: 15:24 Pre-op diagnosis: Weight loss and abnormal imaging with pyloric thickening Post-op diagnosis: same Procedure & Clinicians Study performed: EGD with biopsies Same procedure as scheduled: Yes Indications: Weight loss and abnormal imaging with pyloric thickening Surgeon: Silvio Hairston Procedure Notes SCOAP/Timeout: Done Procedure in detail: After the risks and benefits were explained, written and verbal informed consent was obtained. The patient was brought into the procedure room and placed into the left lateral decubitus position. Please see nurse firer locomotive note for sedation details. The scope was introduced into the mouth through the bite block and advanced under direct visualization to the 2nd portion of the duodenum. The scope was slowly withdrawn carefully examining the mucosa for any defects or lesions. Retroflexed views were accomplished in the stomach. The stomach was decompressed, the scope was then removed from the patient who tolerated the procedure well. Sedation minutes: 8 Complications: none Impression: 1. Duodenum: No mucosal pathology appreciated from the bulb through to the 2nd portion. From the proximal 2nd portion biopsies were acquired for exclusion of sprue. 2. Stomach: The pyloric channel appeared only minimally erythematous but I did not see any sign of neoplasia stricture ring ulceration or other sinister features. There was gastropathy appreciated throughout the antrum and therefore biopsies were acquired from the pre-pyloric and antral mucosa for exclusion of H pylori. The gastropathy was mild throughout the remainder of the stomach and therefore a couple of extra biopsies were acquired from the body of the stomach for histopathologic analysis. Retroflexed views of the LES were unremarkable. 3. Esophagus: The squamocolumnar junction generally correlated with the top of the gastric folds. In the 3:00 a.m. location there was a tongue of salmon-colored mucosa that did seem to extend up into the tubular distal esophagus we targeted this for a singular biopsy to exclude Dwyer's. I did not see any evidence of active or erosive esophagitis no strictures no mass lesions throughout the esophagus. Endoscopic diagnosis 1. Diffuse gastropathy 2. No significant pyloric channel anomaly 3. 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 Await histopathology 2. Continue bowel regimen for soft regular stools. 3. If Dwyer's is confirmed histologically, repeat EGD will be suggested for 12 months time. Number next follow up on progress in GI clinic. Disposition: PACU
[2020-12-11 15:27] VITALS: BP 94/55; PULSE 58; RESP 14; TEMP 36.8; O2SAT 98
[2020-12-11 15:33] VITALS: BP 102/65; PULSE 58; RESP 15; O2SAT 99
[2020-12-11 15:37] VITALS: BP 110/75; PULSE 67; RESP 16; O2SAT 99
[2020-12-11 15:42] VITALS: BP 112/52; PULSE 76; RESP 16; TEMP 36.6; O2SAT 98
== END 2020-12-11 16:00 | disposition home or self-care (01) ==
PROVIDERS: PCP Internal Medicine; Referring Provider Internal Medicine Gastroenterology; Visit Provider Internal Medicine Gastroenterology
PROC: 0DJ08ZZ Inspection of Upper Intestinal Tract, Via Natural or Artificial Opening Endoscopic (ICD-10-PCS; CPT 43235; principal; 2020-12-11 15:30)
DX: K29.50 Unspecified chronic gastritis without bleeding (principal); R63.4 Abnormal weight loss; F41.9 Anxiety disorder, unspecified; F32.9 Major depressive disorder, single episode, unspecified; K31.9 Disease of stomach and duodenum, unspecified; K22.70 Barrett's esophagus without dysplasia
CPT/HCPCS: 43239; J2704

== ENCOUNTER 2021-06-01 12:59 | Emergency (ER) | payer OTHER, MEDICAID, SELFPAY ==
[2021-06-01 13:09] VITALS: BP 133/84; PULSE 65; RESP 16; TEMP 36.9; O2SAT 97; BMI 17.5
--- NOTE | 2021-06-01 13:12 | DI.RAD.S_ITS ---
PROCEDURE: XR RIBS LT MIN 3V W CXR1V INDICATIONS: Rib pain TECHNIQUE: 2 views of the left ribs were acquired, along with a single view chest. COMPARISON: None. FINDINGS: Surgical changes and devices: None. Bones and chest wall: No acute displaced rib fractures. There are old left 4th 5th, 6th, and 9th rib fractures. No suspicious bony lesions. Overlying soft tissues appear unremarkable. Lungs and pleura: No pleural effusions or pneumothorax. Lungs appear clear. Mediastinum: Mediastinal contours appear normal. Heart size is normal. IMPRESSION: 1. No definitive acute displaced rib fractures. 2. Old left 4th 5th, 6th and 9th rib fractures are noted. Dictated by: Rajeev Tristan M.D. on 06/01/2021 at 13:55 Approved by: Rajeev Tristan M.D. on 06/01/2021 at 13:59
--- NOTE | 2021-06-01 15:26 | ED_ITS ---
HPI - Extremity Problem <Imelda Joshua Stewart, [facility] - Last Filed: 06/01/21 17:47> General Chief complaint: Extremity Problem,Nontraumatic Stated complaint: Left rib pain, hard to breathe Time Seen by Provider: 06/01/21 13:54 History of Present Illness HPI Narrative: 65-year-old female presents to the emergency department complaining of left- sided shoulder chest and pain after she ran into a handle a door at the grocery store yesterday. Patient denies hitting her head, states that she is on Suboxone, has not taking any other medications for this pain. She denies any wound, denies any shortness of breath, chest pain, wheezing, or new pain or changes to her left shoulder. She states she has chronic left pain. Patient denies any weakness, denies any sensation changes distally, states she is still able to ambulate normally, denies any urinary changes, nausea vomiting. She denies any fever Related Data Home Medications Medication Instructions Recorded Confirmed buprenorphine 8 mg-naloxone 2 mg 18 film SUBLINGUAL DAILY #0 03/18/12 05/30/21 sublingual film (Suboxone) omeprazole 20 mg capsule,delayed 20 mg PO PRN PRN 09/12/19 05/30/21 release hydroxyzine pamoate 25 mg capsule 25 - 50 mg PO HSP PRN 12/11/20 05/30/21 (Vistaril) Previous Rx's Medication Instructions Recorded meloxicam 15 mg tablet 15 mg PO QDAYP PRN #30 tab 12/26/19 cholecalciferol (vitamin D3) 25 2,000 unit PO QDAY #60 tab 08/13/20 mcg (1,000 unit) tablet (Vitamin D3) ondansetron 4 mg disintegrating 4 mg PO DAILY PRN #60 tab 11/20/20 tablet raloxifene 60 mg tablet (Evista) 60 mg PO QDAY #90 tab 02/25/21 cyclobenzaprine 5 mg tablet 5 mg PO BID PRN #14 tab 06/01/21 diclofenac sodium 1 % topical gel 4 g TOPICAL QID #100 g 06/01/21 (Voltaren Arthritis Pain) lidocaine 5 % topical patch 1 patch TOPICAL DAILY PRN #15 ea 06/01/21 Allergies Allergy/AdvReac Type Severity Reaction Status Date / Time methocarbamol [METHOCARBAMOL] Allergy Severe sob, Verified 05/30/21 16:21 itchy, edema Penicillins [PENICILLINS] Allergy Severe swelling, Verified 05/30/21 16:21 itching, hives Review of Systems <ONELIA Charles - Last Filed: 06/01/21 17:47> Review of Systems Narrative: General: denies fever, chills, malaise, sweats, fatigue Head/Neck: denies headache, neck pain, dizziness Eyes: denies visual changes, eye pain Cardio: denies chest pain, palpitations, edema Respiratory: denies dyspnea, cough, orthopnea GI: denies abdominal pain, nausea, vomiting, or diarrhea : denies dysuria, hematuria, urinary retention, frequency or incontinence MSK: denies joint pain, muscle weakness, endorses left rib pain with movement, cough, or deep breath Skin: denies rash, itching, skin lesions or other Neuro: denies numbness, tingling Patient History <ONELIA Charles - Last Filed: 06/01/21 17:47> Medical History Barretts esophagus (~12/2020) Bipolar disorder (Unknown) Chronic back pain (Unknown) Colon polyps (Unknown) Depression (Unknown) Diverticular disease of colon GERD (gastroesophageal reflux disease) (Unknown) H/O adenomatous polyp of colon Hx of hepatitis C (Unknown) Hx of substance abuse (Unknown) Insomnia (Unknown) Osteopenia (2007) Personal history of breast cancer PTSD (post-traumatic stress disorder) (Unknown) Unintentional weight loss Surgical History History of bladder suspension procedure Hx of shoulder surgery (2001) Status post hysterectomy Social History household members: friend(s) Smoking Status: Current every day smoker quit status: not considering quitting (Not right now) second hand exposure: Yes alcohol intake: former substance use type: former substance user (Heroin, cocaine, marijuana, 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 General: cooperative, comfortable, in no acute distress, well developed and well groomed Head: atraumatic, symmetrical facial expressions Neck: supple, atraumatic Eyes: pupils equal round and reactive, EOMI, conjunctiva normal Nose: nares patent, no rhinorrhea Mouth/Throat: uvula midline, moist mucus membranes Cardiovascular: regular rate and rhythm, no peripheral edema, warm extremities Respiratory/chest normal effort, able to speak in complete sentences, no audible wheezing, stridor, or rales. No retractions or tachypnea., breath sounds clear throughout all lung howard, no increased effort, no hematoma, open wound, crepitus, or deformity GI: abdomen soft, nontender to palpation, nondistended, no masses, no exquisite tenderness with exam, without guarding or rebound. MSK: moves all extremities, ambulatory w/steady gait, neurovascularly intact, no weakness Skin: brisk capillary refill, no rash, no erythema Neuro: normal speech and cognition, A&O x3, normal tone Psych: mental status is grossly normal, congruent mood, normal affect, pleasant and cooperative Initial Vital Signs Initial Vital Signs: Vital Signs Temperature 98.4 F 06/01/21 13:09 Pulse Rate 65 06/01/21 13:09 Respiratory Rate 16 06/01/21 13:09 Blood Pressure 133/84 06/01/21 13:09 Pulse Oximetry 97 06/01/21 13:09 Course <ONELIA Charles - Last Filed: 06/01/21 17:47> Orders Ordered: ED Orders 06/01/21 13:12 XR ribs LT min 3V w CXR1V Stat Vital Signs Vital signs: Vital Signs - 8 hr 06/01/21 13:09 Temperature 98.4 F Pulse Rate 65 Respiratory Rate 16 Blood Pressure 133/84 Pulse Oximetry 97 MDM - Extremity (Nontraumatic) <ONELIA Charles - Last Filed: 06/01/21 17:47> Imaging Data Chest x-ray: Radiologist's Impression: PROCEDURE:? XR RIBS LT MIN 3V W CXR1V ? INDICATIONS:? Rib pain ? TECHNIQUE:? 2 views of the left ribs were acquired, along with a single view chest.? ? COMPARISON:? None. ? FINDINGS:? ? Surgical changes and devices:? None.? ? Bones and chest wall:? No acute displaced rib fractures.? There are old left 4th 5th, 6th, and 9th rib fractures.? No suspicious bony lesions.? Overlying soft tissues appear unremarkable.? ? Lungs and pleura:? No pleural effusions or pneumothorax.? Lungs appear clear.? ? Mediastinum:? Mediastinal contours appear normal.? Heart size is normal.? ? IMPRESSION:? ? 1. No definitive acute displaced rib fractures. 2. Old left 4th 5th, 6th and 9th rib fractures are noted.? ? ? Dictated by: Rajeev Tristan M.D. on 06/01/2021 at 13:55 ? ? Approved by: Rajeev Tristan M.D. on 06/01/2021 at 13:59 ? MDM Narrative Medical decision making narrative: This is a 65-year-old female currently on Suboxone, with history of Dwyer's esophagus, breast cancer, bipolar, GERD and osteopenia presents emergency department complaining of left rib pain after she walked into a handle of the door at the grocery store yesterday. She states that she has pain with deep breath, cough, and movement of her left ribs. She denies any shortness of breath, wheezing, chest pain, new pain to her left shoulder, she states she has chronic left shoulder pain. She has not tried any other medications other than her prescribed Suboxone for her pain. X-ray of her ribs and chest show old left 4th 5th 6th and 9th rib fractures without any definitive acute displaced fractures. Overlying soft tissues appeared unremarkable, no pleural effusion and pneumothorax, her lungs were clear. Encouraged patient to use heat or ice at home whichever is more helpful, she was prescribed Flexeril, she is allergic to methocarbamol, and a BRIANNA for neck gel with lidocaine patches for her pain. She states that this should be adequate. She understands to follow-up with her primary care provider for any worsening of this, or will return to the emergency department if she has any shortness of breath, worsening pain, fever, or difficulty breathing. Patient is appropriate and amenable to discharge home. Vital signs are stable on repeat examination is unremarkable. Patient has been informed of results. Patient has been given strict return to ER precautions for any new or worsening symptoms. Patient understands to follow up closely with outpatient providers as instructed. Patient understands plan and agrees to discharge home. All questions and concerns answered at this time. Discharge Plan Departure Patient Disposition: Home Clinical Impression: Acute costochondritis Instructions: DI for Costochondritis, DI for Rib Contusion Activity Restrictions/Additional Instructions: *You have been diagnosed with rib pain and costochondritis which is inflammation and pain of your chest wall. Your x-ray shows an old 4th 5th 6th and 9th rib fracture but no new rib fractures, no fractures that are displaced, lungs appear clear, without any signs of infection. There is no soft tissue swelling or accumulation of fluid. Please use the lidocaine patches and Voltaren gel as needed for your pain on your areas of pain. Please take the muscle relaxers as needed for tense muscles. Please use heat packs, ice, what ever makes it feel better and rest. *What to do: *Please continue to take your regular medications as directed. [x ] New medication prescriptions sent to your pharmacy: [ [facility]] [ ] New medication written as a paper prescription [ ] No new medications given *Please follow up with your primary care provider in 2-3 days, call for an appointment. Let them know you were seen in the Emergency Department and that we asked that you be seen for follow-up. We will electronically transmit a record of today's note if your PCP is in our system *If you do not have a primary care provider please contact [phone] to establish care with one of the [facility] primary care providers. *Return to Emergency Department if you should have any new, worsening or concerning symptoms, such as [fever greater than 101F, chills, worsening pain, persistent vomiting or other bothersome symptoms] Prescriptions: New lidocaine 5 % adhesive patch,medicated 1 patch topical DAILY PRN (Reason: pain) Qty: 15 0RF Rx Instructions: leave on most painful area for up to 12 hrs diclofenac sodium [Voltaren Arthritis Pain] 1 % gel 4 g topical QID Qty: 100 0RF Rx Instructions: apply to single knee, ankle, foot; for foot includes sole/toes/top of foot cyclobenzaprine 5 mg tablet 5 mg PO BID PRN (Reason: muscle spasm) Qty: 14 0RF No Action buprenorphine-naloxone [Suboxone] 8 MG/2 MG film 18 film sublingual DAILY Qty: 0 0RF Rx Instructions: states takes 24mg/day meloxicam 15 mg tablet 15 mg PO QDAYP PRN (Reason: back pain) Qty: 30 6RF cholecalciferol (vitamin D3) [Vitamin D3] 25 mcg (1,000 unit) tablet 2,000 unit PO QDAY Qty: 60 12RF ondansetron 4 mg tablet,disintegrating 4 mg PO DAILY PRN (Reason: nausea and vomiting) Qty: 60 0RF raloxifene [Evista] 60 mg tablet 60 mg PO QDAY Qty: 90 1RF hydroxyzine pamoate [Vistaril] 25 MG capsule 25 - 50 mg PO HSP PRN (Reason: Sleep) 0RF omeprazole 20 mg capsule,delayed release(DR/EC) 20 mg PO PRN PRN (Reason: GERD) 0RF Referrals: Kaiden Lala MD [Primary Care Provider] -
== END 2021-06-01 15:48 | disposition home or self-care (01) ==
PROVIDERS: Emergency Provider Nurse Practitioner Critical Care Medicine; PCP Internal Medicine
DX: M94.0 Chondrocostal junction syndrome [Tietze] (principal); F17.200 Nicotine dependence, unspecified, uncomplicated
CPT/HCPCS: 71101; 99283

== ENCOUNTER 2021-07-01 10:17 | Day surgery (SDC) | payer OTHER, MEDICAID, SELFPAY ==
[2021-07-01] VITALS (8 sets, daily range): BP systolic 102–114; BP diastolic 61–71; PULSE 56–74; RESP 12–21; TEMP 36.8–37.2; O2SAT 97–100; BMI 17.3
--- NOTE | 2021-07-01 | PATH_ITS ---
[facility] Accession Number: [id number] . 01 Material submitted: . PART A: stomach - ANTRUM PART B: gastrointestinal site - ANGULARIS PART C: stomach - LESSER CURVATURE PART D: stomach - GREATER CURVATURE PART E: stomach - GASTRIC BODY PART F: esophagus - DISTAL ESOPHAGUS PART G: colon - TRANSVERSE COLON POLYP . 02 Diagnosis: A. Antrum: Gastric antral mucosa with mild chronic inflammation. Negative for Helicobacter organisms by immunohistochemistry. Negative for intestinal metaplasia. Negative for dysplasia or malignancy. . B. Angularis: Gastric antral mucosa with mild chronic inflammation. Negative for Helicobacter organisms by immunohistochemistry. Negative for intestinal metaplasia. Negative for dysplasia or malignancy. . C. Lesser Curvature: Portions of gastric body-type mucosa with mild chronic inflammation. Negative for intestinal metaplasia. Negative for dysplasia or malignancy. . D. Greater Curvature: Portions of gastric body-type mucosa with mild chronic inflammation. Negative for intestinal metaplasia. Negative for dysplasia or malignancy. . E. Gastric Body: Gastric body-type mucosa with no significant histomorphologic abnormality. Negative for intestinal metaplasia, regions of dysplasia, or malignancy. Negative for Helicobacter organisms by H/E stain. . F. Distal Esophagus: Squamocolumnar junctional mucosa with specialized intestinal metaplasia, consistent with Dwyer's esophagus, with patchy regions that underly squamous mucosa. Negative for dysplasia and malignancy. . G. Transverse Colon Polyp: Tubular adenoma. [facility] 07/05/2021 1605 Local . 02 Electronically signed: . Ira Rocha MD, Pathologist NPI- [id number] . 01 Gross description: . Part A: ANTRUM: Received in formalin are 2 fragment(s) of sheikh, soft tissue measuring 0.2 x 0.1 x 0.1 cm to 0.2 x 0.1 x 0.1 cm submitted entirely in 1 cassette(s) Part B: ANGULARIS: Received in formalin are 2 fragment(s) of sheikh, soft tissue measuring 0.4 x 0.2 x 0.1 cm to 0.2 x 0.1 x 0.1 cm submitted entirely in 1 cassette(s) Part C: LESSER CURVATURE: Received in formalin are 2 fragment(s) of sheikh, soft tissue measuring 0.3 x 0.3 x 0.1 cm to 0.3 x 0.1 x 0.1 cm submitted entirely in 1 cassette(s) Part D: GREATER CURVATURE: Received in formalin are 2 fragment(s) of sheikh, soft tissue measuring 0.2 x 0.2 x 0.1 cm to 0.2 x 0.1 x 0.1 cm submitted entirely in 1 cassette(s) Part E: GASTRIC BODY: Received in formalin is 1 fragment(s) of sheikh, soft tissue measuring 0.2 x 0.1 x 0.1 cm submitted entirely in 1 cassette(s) Part F: DISTAL ESOPHAGUS: Received in formalin is 1 fragment(s) of sheikh, soft tissue measuring 0.3 x 0.2 x 0.2 cm submitted entirely in 1 cassette(s) Part G: TRANSVERSE COLON POLYP: Received in formalin is 1 fragment(s) of sheikh, soft tissue measuring 0.2 x 0.2 x 0.1 cm submitted entirely in 1 cassette(s) /CPE 07/02/2021 0639 Local . 02 Microscopic: . A. An immunohistochemical stain is performed to evaluate for Helicobacter organisms and is negative. The control stain shows appropriate reactivity. . B. An immunohistochemical stain is performed to evaluate for Helicobacter organisms and is negative. The control stain shows appropriate reactivity. . . * This test was developed and its performance characteristics determined by [facility]. It has not been cleared or approved by the U.S. Food and Drug Administration. The FDA has determined that such clearance or approval is not necessary. This test is used for clinical purposes. It should not be regarded as investigational or for research. . 02 Pathologist provided ICD-10: D12.6, K63.5 . 02 CPT . 534049, 339502, 013203, 190036, 313507, 712314, 317666, [id number] Specimen Comment: A courtesy copy of this report has been sent to [phone] Performed at: 01 [facility] [address] [place] [address], [place], [place] [id number] MD Zoran Fontana MD Phone: [phone] Performed at: 02 [facility] [id number] [place], [place] [id number] MD Imelda Herrera MD Phone: [phone]
[2021-07-01] MEDS: SODIUM CHLORIDE 0.9% 1,000 ML 84 ML IV (10:53)
[2021-07-01 10:57] LABS: COVID19 -Nasal RAPID Negative (Negative)
--- NOTE | 2021-07-01 11:24 | PM.HP.1 ---
History of Present Illness History of Present Illness Date Patient Seen: 07/01/21 Time Patient Seen: 11:24 Chief complaint: SDC Narrative: I reviewed prior endoscopy my note and Dr. Burgos recent clinical note. No significant changes. Patient History Medical History Barretts esophagus (~12/2020) Bipolar disorder (Unknown) Chronic back pain (Unknown) Colon polyps (Unknown) Depression (Unknown) Diverticular disease of colon GERD (gastroesophageal reflux disease) (Unknown) H/O adenomatous polyp of colon Hx of hepatitis C (Unknown) Hx of substance abuse (Unknown) Insomnia (Unknown) Osteopenia (2007) Personal history of breast cancer PTSD (post-traumatic stress disorder) (Unknown) Unintentional weight loss Surgical History History of bladder suspension procedure Hx of shoulder surgery (2001) Status post hysterectomy Family & Social History Social History: household members friend(s) Tobacco & Substance use: Tobacco type e-cigarettes Smoking Status Current every day smoker alcohol intake current alcohol intake frequency other Substance Use Type marijuana,prescription drug Meds Home Medications and Allergies Home Medications Medication Instructions Recorded Confirmed Type buprenorphine 8 mg-naloxone 2 mg 18 film SUBLINGUAL DAILY #0 03/18/12 07/01/21 History sublingual film (Suboxone) omeprazole 20 mg capsule,delayed 20 mg PO PRN PRN 09/12/19 07/01/21 History release cholecalciferol (vitamin D3) 25 2,000 unit PO QDAY #60 tab 08/13/20 07/01/21 Rx mcg (1,000 unit) tablet (Vitamin D3) ondansetron 4 mg disintegrating 4 mg PO DAILY PRN #60 tab 11/20/20 07/01/21 Rx tablet hydroxyzine pamoate 25 mg capsule 25 - 50 mg PO HSP PRN 12/11/20 07/01/21 History (Vistaril) raloxifene 60 mg tablet (Evista) 60 mg PO QDAY #90 tab 02/25/21 07/01/21 Rx cyclobenzaprine 5 mg tablet 5 mg PO BID PRN #14 tab 06/01/21 07/01/21 Rx diclofenac sodium 1 % topical gel 4 g TOPICAL QID #100 g 03/26/22 04/25/22 Rx (Voltaren Arthritis Pain) lidocaine 5 % topical patch 1 patch TOPICAL DAILY PRN #15 ea 06/01/21 07/01/21 Rx meloxicam 15 mg tablet 15 mg PO QDAYP PRN #30 tab 06/28/21 07/01/21 Rx Allergies Allergy/AdvReac Type Severity Reaction Status Date / Time methocarbamol [METHOCARBAMOL] Allergy Severe sob, Verified 07/01/21 10:34 itchy, edema Penicillins [PENICILLINS] Allergy Severe swelling, Verified 07/01/21 10:34 itching, hives Review of Systems Review of Systems ROS: Yes All systems reviewed with the patient and are negative except as otherwise documented Exam Vital Signs (past 8 hours): - 07/01/21 10:48 Temperature 98.9 F Pulse Rate 67 Respiratory Rate 16 Blood Pressure 114/71 Pulse Oximetry 97 Oxygen Delivery Method Room Air Const General: cooperative and comfortable Orientation: alert HENMT Head: normocephalic Ears: external ears normal Nose: external nose normal Face and sinus: normal facial exam Mouth: oral mucosae normal Eyes General: appearance normal, both eyes and all related structures Neck Neck: normal visual inspection Chest Chest: normal inspection of the chest Resp Effort & Inspection: normal respiratory effort Cardio Rate: regular rate GI Inspection: normal to inspection Skin General: no rashes or lesions noted and No jaundice Neuro General: patient alert and moves all extremities Cognition: normal cognition Speech: speech normal Extrem General: no pedal edema Psych Appearance: grossly normal Objective Labs Labs: Laboratory Results - last 24 hr 07/01/21 10:26 SARS-CoV-2 (PCR) Negative Assessment & Plan Assessment & Plan narrative: 65-year-old female with history of Barretts, gastric intestinal metaplasia, weight loss. (Prior failed colonoscopy and follow-up negative barium enema) EGD for repeat biopsies and a repeat attempt at colonoscopy is pursued today. The patient is aware that even in the context of Anesthesia, we may not be able to complete her colonoscopy. Time Spent With Patient Critical Care time: I spent a total of [] minutes of critical care time on this patient's care today; this time is exclusive of procedural time.
--- NOTE | 2021-07-01 11:28 | PM.PREOP ---
Pre-operative Note COVID-19 COVID-19 status: Negative Result date/Date tested (Pos, Neg/Pending): 07/01/21 Criteria for continued procedure: Possibility delay results in more complex future surgery or treatment Interval Note History & Physical reviewed/Exam performed by Physician: Yes Changes to H&P: No ASA Class (for procedural sedation): III
--- NOTE | 2021-07-01 12:50 | PM.OP.EC ---
Operative Date/Time/Diagnoses Date of procedure: 07/01/21 Time of procedure: 12:50 Pre-op diagnosis: Barretts esophagus, gastric intestinal metaplasia, prior incomplete colonoscopy, weight loss. Post-op diagnosis: same Procedure & Clinicians Study performed: EGD with biopsies and colonoscopy with cold forceps polypectomy Same procedure as scheduled: Yes Indications: Barretts esophagus, gastric intestinal metaplasia, weight loss, prior incomplete colonoscopy Surgeon: Silvio Hairston Procedure Notes SCOAP/Timeout: Done Procedure in detail: After the risks and benefits were explained, written and verbal informed consent was obtained. The patient was brought into the procedure room and placed into the left lateral decubitus position. Please see nurse heavy equipment operating engineer note for sedation details. The scope was introduced into the mouth through the bite block and advanced under direct visualization to the 1st portion of the duodenum. The scope was slowly withdrawn carefully examining the mucosa for any defects or lesions. Retroflexed views were accomplished in the stomach. The stomach was decompressed, the scope was then removed from the patient who tolerated the procedure well. The patient was then turned around a digital rectal examination accomplished no significant pathology is appreciated. The scope was introduced into the rectum and advanced to the cecum as identified by the appendiceal orifice and ileocecal valve. The terminal ileum was briefly interrogated. The scope was then slowly withdrawn to carefully examine the mucosa for any defects or lesions. Multiple direct views were made through the dentate line for exclusion of pathology the colon was decompressed scope removed the patient who tolerated the procedure well. Bowel prep adequate Pediatric colonoscope Scope withdrawal time: 13 minutes Sedation minutes: 35 Complications: none Impression: 1. Duodenum: The proximal duodenum was normal in appearance I did not advance the scope all the way into D2. 2. Stomach: No outlet obstruction no mass lesions no ulceration. There were some old scarring seen within the antrum. No active erosions no active ulcers. In light of prior gastric intestinal metaplasia, biopsies were taken from the antrum, angularis, lesser curve, greater curve, and gastric body. These were submitted separately for histopathologic analysis. Retroflexed views of the LES were unremarkable. 3. Esophagus: The squamocolumnar junction generally correlated with the top of the gastric folds. There was 1 tongue of salmon-colored mucosa that extended up from the GE junction (39 cm) into the tubular esophagus by perhaps up to a cm. This tongue was targeted for repeat biopsies. The remainder of the esophagus was unremarkable. No active inflammation. 4. Terminal ileum: The very terminal aspect of TI appeared normal. 5. Colon: There was a diminutive polyp in the transverse colon perhaps 3-4 mm in greatest dimension removed with cold forceps. No additional pathology was appreciated throughout. The patient had a moderately challenging navigation through the distal sigmoid. Endoscopic diagnosis 1. Gastropathy 2. C 0 M 1 Barretts 3. Colon polyp Post-procedure Plan for aftercare: 1. Await histopathology 2. Repeat EGD will likely be suggested for 3 years time. 3. Repeat colonoscopy will likely be suggested for 7-10 years time. Disposition: PACU
== END 2021-07-01 13:43 | disposition home or self-care (01) ==
PROVIDERS: PCP Internal Medicine; Referring Provider Internal Medicine Gastroenterology; Visit Provider Internal Medicine Gastroenterology
PROC: 0DJ08ZZ Inspection of Upper Intestinal Tract, Via Natural or Artificial Opening Endoscopic (ICD-10-PCS; CPT 43235; principal; 2021-07-01 12:30)
PROC: 0DJD8ZZ Inspection of Lower Intestinal Tract, Via Natural or Artificial Opening Endoscopic (ICD-10-PCS; CPT 45378; 2021-07-01 12:30)
DX: R63.4 Abnormal weight loss (principal); K22.70 Barrett's esophagus without dysplasia; K31.9 Disease of stomach and duodenum, unspecified; Z20.822 Contact with and (suspected) exposure to COVID-19; K29.50 Unspecified chronic gastritis without bleeding; D12.3 Benign neoplasm of transverse colon
CPT/HCPCS: 43239; 45380; 87635; C9803; J2704

== ENCOUNTER → 2021-11-27 09:22 | Outpatient (CLI) | payer OTHER, SELFPAY ==
--- NOTE | 2021-11-27 09:28 | DI.RAD.S_ITS ---
PROCEDURE: XR SHOULDER RT MIN 2V INDICATIONS: Right shoulder pain after fall TECHNIQUE: 3 views of the shoulder were acquired. COMPARISON: [facility], CR, XR SHOULDER 2+ VIEWS RIGHT, 04/28/2019, 12:02. [facility], CR, XR SHOULDER RT MIN 2V, 01/27/2019, 9:29. FINDINGS: Bones: No acute fractures or dislocations. No suspicious bony lesions. Visualized ribs appear intact. Mild glenohumeral and acromioclavicular osteoarthrosis. Soft tissues: No suspicious soft tissue calcifications. Surgical clips are seen in the right axilla. IMPRESSION: Mild to moderate acromioclavicular and glenohumeral osteoarthrosis. No acute osseous abnormality. If the symptoms persist, consider cross sectional imaging such as MRI or CT for further assessment. Dictated by: Marcel Carmona M.D. on 11/27/2021 at 11:12 Approved by: Marcel Carmona M.D. on 11/27/2021 at 11:15
== END ==
PROVIDERS: PCP Internal Medicine; Referring Provider Nurse Practitioner Family; Visit Provider Nurse Practitioner Family
DX: S46.911A Strain of unspecified muscle, fascia and tendon at shoulder and upper arm level, right arm, initial encounter (principal); X58.XXXA Exposure to other specified factors, initial encounter; M19.011 Primary osteoarthritis, right shoulder
CPT/HCPCS: 73030

== ENCOUNTER → 2022-02-05 15:26 | Outpatient (CLI) | payer OTHER, SELFPAY ==
--- NOTE | 2022-02-05 | DI.MRI.S_ITS ---
PROCEDURE: MR SHOULDER RT WO CON INDICATIONS: Pain in right shoulder TECHNIQUE: Noncontrast oblique coronal T2 fast spin echo with fat saturation, oblique sagittal T1 spin echo and T2 fast spin echo with fat saturation, axial T1 spin echo and T2 fast spin echo with fat saturation through the shoulder. COMPARISON: [facility], CR, XR SHOULDER RT MIN 2V, 11/27/2021, 9:28. [facility], CR, XR SHOULDER 1 VIEW RIGHT, 12/24/2021, 7:05. FINDINGS: Image quality: Significantly suboptimal due to rpdhn-gt-gymj being too large and motion artifact. Rotator cuff: Bulk: Gekn-do-merbkthe subscapularis atrophy. Teres minor: Intact Supraspinatus: Tendinosis and suspected partial thickness articular tear Infraspinatus: Tendinosis. High-grade bursal and interstitial tearing of the muscle tendon junction and mid tendon. Subscapularis: Full-thickness tear involving most of the mid and superior fibers. Bones and bursae: GH joint: Moderate effusion and high-grade degenerative changes with cartilage loss at both the glenoid and humeral surfaces. Joint is subluxed anteriorly and superiorly. AC joint: Gude-us-dshmpzxk degenerative changes Humeral head: No acute edema. Enthesopathic changes. Scapula and acromion: Normal morphology Bursa: Mild to moderate bursitis Capsule: Labrum: Circumferentially attenuated likely due to chronic wear. Long head biceps tendon: Not well seen in the intra-articular aspect. There is probably a split tear of the tendon in the bicipital groove. IGHL: There is capsular edema. Rotator interval: Partially efface with edema Soft tissues: The lungs are not well evaluated on this study. Prominent axillary indeterminate nodes are present, partially evaluated. IMPRESSION: Axxp-eg-mwywttkx subscapularis atrophy. Full-thickness tear of most of the superior and mid fibers. There is also high-grade tearing of the infraspinatus as described above. Supraspinatus tendinosis. High-grade glenohumeral degenerative changes with subluxation, chronically worn labrum and joint effusion with synovitis and suspected debris. Dkug-fi-umnbnlsr acromioclavicular degenerative changes. There is also mild to moderate bursitis. Suspected torn long head biceps tendon. Other findings as above. Dictated by: Harrison Morse M.D. on 02/05/2022 at 16:34 Approved by: Harrison Morse M.D. on 02/05/2022 at 16:44
== END ==
PROVIDERS: PCP Internal Medicine; Referring Provider Physician Assistant Surgical; Visit Provider Physician Assistant Surgical
DX: M75.121 Complete rotator cuff tear or rupture of right shoulder, not specified as traumatic (principal); M75.51 Bursitis of right shoulder; M25.511 Pain in right shoulder
CPT/HCPCS: 73221

== ENCOUNTER → 2022-06-20 11:17 | Outpatient (CLI) | payer OTHER, MEDICAID, SELFPAY ==
--- NOTE | 2022-06-20 11:18 | DI.RAD.S_ITS ---
PROCEDURE: XR FOOT LT MIN 3V INDICATIONS: Left distal foot pain; h/o SERM use TECHNIQUE: 3 views of the foot were acquired. COMPARISON: [facility], , FOOT 3V LEFT, 11/27/2010, 10:31. FINDINGS: Bones: No fractures or dislocations. Mild osteoarthritic changes are seen in left foot. Small dorsal calcaneal enthesophyte is seen. No suspicious bony lesions. Soft tissues: No tibiotalar joint effusion. Achilles tendon appears normal. IMPRESSION: Mild left foot osteoarthritis. No fracture or dislocation. No gross soft tissue abnormalities. Dictated by: Lavelle Parker M.D. on 06/20/2022 at 12:48 Approved by: Lavelle Parker M.D. on 06/20/2022 at 12:51
== END ==
PROVIDERS: PCP Internal Medicine; Referring Provider Internal Medicine; Visit Provider Internal Medicine
DX: M19.072 Primary osteoarthritis, left ankle and foot (principal); M79.672 Pain in left foot
CPT/HCPCS: 73630

== ENCOUNTER → 2022-06-23 09:07 | Outpatient (CLI) | payer OTHER, MEDICAID, SELFPAY ==
--- NOTE | 2022-06-23 09:07 | DI.US.S_ITS ---
PROCEDURE: US PERIPH VENOUS LOW EXTREM LT INDICATIONS: R/O DVT left leg TECHNIQUE: Real-time imaging, as well as color and pulse Doppler interrogation, were performed of the lower extremity deep veins from the inguinal ligament to the popliteal fossa. COMPARISON: None. FINDINGS: The common femoral, femoral and popliteal veins are normally compressible, and free of intraluminal thrombus. Color and pulse Doppler demonstrate normal phasic intraluminal flow. There is normal augmentation response to distal compression maneuver. IMPRESSION: No deep venous thrombosis. Dictated by: Whit Lua M.D. on 06/23/2022 at 14:19 Approved by: Whit Lua M.D. on 06/23/2022 at 14:19
== END ==
PROVIDERS: PCP Internal Medicine; Referring Provider Student in an Organized Health Care Education/Training Program; Visit Provider Student in an Organized Health Care Education/Training Program
DX: M79.672 Pain in left foot (principal)
CPT/HCPCS: 93971

== ENCOUNTER → 2022-06-27 10:52 | Outpatient (CLI) | payer OTHER, MEDICAID, SELFPAY ==
--- NOTE | 2022-06-27 10:53 | DI.RAD.S_ITS ---
PROCEDURE: XR SACRUM COCCYX MIN 2V INDICATIONS: Coccyx pain TECHNIQUE: 3 views of the sacrum and coccyx acquired. COMPARISON: None. FINDINGS: Bones: No fractures or dislocations. No suspicious bony lesions. Left SI joint and pubic symphysis arthrodesis, without hardware complication. No displaced fracture. Soft tissues: Visualized bowel gas pattern is normal. No suspicious soft tissue densities. IMPRESSION: No acute bony abnormality. Dictated by: Jonathan Renteria M.D. on 06/27/2022 at 13:42 Approved by: Jonathan Renteria M.D. on 06/27/2022 at 13:42
== END ==
PROVIDERS: PCP Internal Medicine; Referring Provider Nurse Practitioner Family; Visit Provider Nurse Practitioner Family
DX: S39.92XA Unspecified injury of lower back, initial encounter (principal); X58.XXXA Exposure to other specified factors, initial encounter
CPT/HCPCS: 72220

== ENCOUNTER → 2022-07-28 10:21 | Outpatient (CLI) | payer OTHER, MEDICAID, SELFPAY ==
[2022-07-28 12:10] LABS: Alanine Aminotransferase 23 IU/L (<35); Albumin 4.5 g/dL (3.5-5.0); Albumin Globulin Ratio 1.3 (1.0-2.8); Alkaline Phosphatase 79 U/L (38-126); Aspartate Aminotransferase 32 IU/L (14-36); Bilirubin Total 0.8 mg/dL (0.2-1.3); Blood Urea Nitrogen 16 mg/dL (7-17); Calcium 9.6 mg/dL (8.4-10.2); Carbon Dioxide 27 mmol/L (22-32); Chloride 101 mmol/L (98-107); Cholesterol 248 mg/dL (140-199); Estimated Glomerular Filt Rate > 60 mL/min (>60); Globulin 3.4 g/dL (1.7-4.1); Glucose 109 mg/dL (80-110); HDL Cholesterol 87 mg/dL (40-60); HEMOLYSIS 17 (0-50); LDL Cholesterol Calculated 126 mg/dL (<100); Potassium 4.2 mmol/L (3.4-5.1); Sodium 136 mmol/L (137-145); Total Protein 7.9 g/dL (6.3-8.2); Triglycerides 177 mg/dL (35-150)
== END ==
PROVIDERS: PCP Internal Medicine; Referring Provider Internal Medicine; Visit Provider Internal Medicine
DX: E78.5 Hyperlipidemia, unspecified (principal); Z86.19 Personal history of other infectious and parasitic diseases
CPT/HCPCS: 36415; 80053; 80061

== ENCOUNTER → 2022-08-18 12:33 | Outpatient (CLI) | payer OTHER, MEDICAID, SELFPAY ==
--- NOTE | 2022-08-18 12:34 | DI.MG.S_ITS ---
BILATERAL DIGITAL SCREENING MAMMOGRAM 3D/2D WITH CAD POST LUMPECTOMY: 08/18/2022 CLINICAL: Routine screening. Personal history of right breast cancer. Comparison is made to exams dated: 06/28/2020 mammogram, 05/25/2018 mammogram, and 10/08/2015 mammogram - [facility]. Both breasts are extremely dense, which lowers the sensitivity of mammography (category d />75% glandular tissue). Current study was also evaluated with a Computer Aided Detection (CAD) system. There are benign post operative findings in the right breast. No significant masses, calcifications, or other findings are seen in either breast. There has been no significant interval change. IMPRESSION: BENIGN There is no mammographic evidence of malignancy. A 1 year screening mammogram is recommended. This exam was interpreted at Station ID: [id number]. NOTE: For mammograms, a report in lay terms will be sent to the patient. Approximately 15% of breast malignancies will not be visualized mammographically. In the management of a palpable breast mass, a negative mammogram must not discourage biopsy of a clinically suspicious lesion. Electronically Signed By: Harrison [email or web address]/maryellen:08/18/2022 13:02:14 letter sent: Normal Exam ACR BI-RADS Category 2: Benign Finding(s) 3342F
== END ==
PROVIDERS: PCP Internal Medicine; Referring Provider Internal Medicine; Visit Provider Internal Medicine
DX: Z12.31 Encounter for screening mammogram for malignant neoplasm of breast (principal); Z85.3 Personal history of malignant neoplasm of breast
CPT/HCPCS: 77063; 77067

== ENCOUNTER → 2023-11-11 09:37 | Outpatient (CLI) | payer OTHER, SELFPAY ==
--- NOTE | 2023-11-11 09:39 | DI.RAD.S_ITS ---
PROCEDURE: XR DEXA AXIAL SKELETON INDICATIONS: osteoporosis COMPARISON: [facility], , DEXA AXIAL SKELETON, 04/30/2017, 13:20. FINDINGS: Lumbar Spine: Bone mineral density 0.86 g/cm2, T score -1.4, previously -1.2. Left Hip: Bone mineral density 0.71 g/cm2, T score -1.9, previously -1.3. Left Femoral Neck: Bone mineral density 0.58 g/cm2, T score -2.4, previously -2.4. Right Hip: Bone mineral density 0.68 g/cm2, T score -2.2, previously -1.4. Right Femoral Neck: Bone mineral density is 0.56 g/cm2, T score -2.6, previously -2.1. Fracture Risk Calculation (when applicable): 10-year fracture risk of a major osteoporotic fracture 20% and of a hip fracture 7.4%. (T score greater or equal to -1.0 to: NORMAL) (T score from -1.1 to -2.4: OSTEOPENIA) (T score less than or equal to -2.5: OSTEOPOROSIS) IMPRESSION: Osteoporosis. T-scores in the right and left hips are decreased from prior. Follow-up guidelines as follows: Osteoporosis: Consider a repeat DEXA and Vertebral Fracture Assessment (VFA) exam in 2 years or sooner if medically necessary, to reassess this patient's status. Osteopenia: Consider a repeat DEXA in 2-3 years to reassess this patient's status, or if there is a new clinical indication. Normal: Consider a repeat DEXA in 5 years or sooner, or if there is a new clinical indication. All treatment decisions require clinical judgment and consideration of individual patient factors, including patient preferences, comorbidities, previous drug use, risk factors not captured in the FRAX model (e.g., frailty, falls, vitamin D deficiency, increased bone turnover, interval significant decline in bone density ) and possible under- or over-estimation of fracture risk by FRAX. In addition, the NOF Guide recommends that FDA-approved medical therapies be considered in postmenopausal women and men age >= 50 years with a: * Hip or vertebral (clinical or morphometric) fracture * T-score of <=-2.5 at the spine or hip * Ten-year fracture probability by FRAX of >= 3% for hip fracture or >=20% for major osteoporotic fracture. People with diagnosed cases of osteoporosis or at high risk for fracture should have regular bone mineral density tests. For patients eligible for Medicare, routine testing is allowed once every 2 years. The testing frequency can be increased to one year for patients who have rapidly progressing disease, those who are receiving or discontinuing medical therapy to restore bone mass, or have additional risk factors. Dictated by: Harrison Morse M.D. on 11/11/2023 at 13:20 Approved by: Harrison Morse M.D. on 11/11/2023 at 13:22
== END ==
PROVIDERS: PCP Internal Medicine; Referring Provider Internal Medicine; Visit Provider Internal Medicine
DX: M81.0 Age-related osteoporosis without current pathological fracture (principal)
CPT/HCPCS: 77080

== ENCOUNTER → 2024-03-15 10:21 | Outpatient (CLI) | payer MEDICARE, SELFPAY ==
[2024-03-15 11:04] LABS: Influenza A - CEPHEID Flu A NEGATIVE (NEGATIVE); Influenza B - CEPHEID Flu B NEGATIVE (NEGATIVE); Respiratory Syncytial Virus Negative (Negative)
[2024-03-15 11:15] LABS: COVID-19 CEPHEID 4-PLEX PCR Negative (Negative)
== END ==
PROVIDERS: PCP Internal Medicine; Visit Provider Physician Assistant Surgical
DX: R05.1 Acute cough (principal)
CPT/HCPCS: 0241U

== ENCOUNTER → 2024-03-15 10:55 | Outpatient (CLI) | payer MEDICARE, SELFPAY ==
--- NOTE | 2024-03-15 10:56 | DI.RAD.S_ITS ---
PROCEDURE: XR CHEST 2V INDICATIONS: SOB, cough, chest congestion TECHNIQUE: 2 views of the chest were acquired. COMPARISON: [facility], CR, XR CHEST 2V, 09/01/2017, 7:48. FINDINGS: Surgical changes and devices: Surgical clips project over the right lateral chest wall as before. Lungs and pleura: Right lower lobe consolidation. Likely small right pleural effusion. No pneumothorax. Left lung appears clear. Mediastinum: Mediastinal contours are normal. Heart size is normal. Bones and chest wall: No suspicious bony abnormalities. Soft tissues appear unremarkable. IMPRESSION: Right lower lobe pneumonia. Recommend follow up chest radiograph 4-6 weeks after treatment to document resolution of findings and/or return to baseline examination. Dictated by: Monico Dugan M.D. on 03/15/2024 at 11:17 Approved by: Monico Dugan M.D. on 03/15/2024 at 11:18
== END ==
PROVIDERS: PCP Internal Medicine; Referring Provider Physician Assistant Surgical; Visit Provider Physician Assistant Surgical
DX: J18.9 Pneumonia, unspecified organism (principal); R05.1 Acute cough
CPT/HCPCS: 0241U; 71046

== ENCOUNTER → 2024-04-07 15:19 | Outpatient (CLI) | payer MEDICARE, SELFPAY ==
[2024-04-07 16:00] LABS: Influenza A - CEPHEID Flu A POSITIVE (NEGATIVE); Influenza B - CEPHEID Flu B NEGATIVE (NEGATIVE); Respiratory Syncytial Virus Negative (Negative)
[2024-04-07 16:32] LABS: COVID-19 CEPHEID 4-PLEX PCR Negative (Negative)
== END ==
PROVIDERS: PCP Internal Medicine; Visit Provider Physician Assistant Medical
DX: R05.1 Acute cough (principal)
CPT/HCPCS: 0241U

== ENCOUNTER → 2024-04-07 15:20 | Outpatient (CLI) | payer MEDICARE, SELFPAY ==
--- NOTE | 2024-04-07 15:22 | DI.RAD.S_ITS ---
PROCEDURE: XR CHEST 2V INDICATIONS: SHORTNESS OF BREATH TECHNIQUE: 2 views of the chest were acquired. COMPARISON: [facility], CR, XR CHEST 2V, 03/15/2024, 11:05. FINDINGS: Surgical changes and devices: None. Lungs and pleura: Scarring/atelectasis at right lung base is seen. Ill-defined masslike consolidation in right lower lung field in right lower lung field is seen decreased in size compared to prior study. Left lung is clear. No pleural effusions or pneumothorax. Mediastinum: Mediastinal contours are normal. Heart size is normal. Bones and chest wall: No suspicious bony abnormalities. Soft tissues appear unremarkable. IMPRESSION: Interval improvement in right lower lung field aeration suggestive of resolving right lower lobe infiltrate. Continue follow-up until resolution is recommended to rule out underlying malignant process. No pleural effusion or pneumothorax. Dictated by: Lavelle Parker M.D. on 04/07/2024 at 16:01 Approved by: Lavelle Parker M.D. on 04/07/2024 at 16:05
== END ==
LOC: RAD 15:22
PROVIDERS: PCP Internal Medicine; Referring Provider Physician Assistant Medical; Visit Provider Physician Assistant Medical
DX: R05.1 Acute cough (principal); R06.02 Shortness of breath
CPT/HCPCS: 0241U; 71046

== ENCOUNTER → 2025-01-21 14:18 | Outpatient (CLI) | payer MEDICARE, SELFPAY ==
--- NOTE | 2025-01-21 14:19 | DI.MG.S_ITS ---
MM screening mammo BI: 01/21/2025. BI-RADS: 2 CLINICAL: 69-year old female for bilateral screening mammogram. No Tyrer-Cuzick risk score calculation due to the patient's personal history of breast cancer. Patient reports a history of right breast carcinoma diagnosed at age 57. Status-post right lumpectomy. No first-degree family history of breast cancer. The patient had a prior right breast biopsy. PRIOR EXAMS 08/18/2022, 06/28/2020, 05/25/2018, 10/08/2015. MAMMOGRAPHY TECHNIQUE: 2D and 3D (tomosynthesis) digital mammographic views obtained, with additional images as needed for full coverage. Current study was also evaluated with a Computer Aided Detection (CAD) system. DENSITY D. The breasts are extremely dense, which lowers the sensitivity of mammography. MAMMOGRAPHY FINDINGS Right: Surgical clips present on the right. Benign-appearing post- surgical changes noted on the right. There are no suspicious masses, calcifications, or other findings in the breast. No significant change from comparison. Left: Benign-appearing calcification noted on the left. There are no suspicious masses, calcifications, or other findings in the breast. No significant change from comparison. IMPRESSION: * No evidence of malignancy with benign findings. RECOMMENDATIONS Bilateral * Annual screening mammography. OVERALL ASSESSMENT CATEGORY BI-RADS-2: Benign. The [employer] recommends annual screening mammography beginning at age 40 for women with average risk of breast cancer. ELECTRONICALLY SIGNED: Cecilia Marques M.D. on 01/23/2025 at 11:58:44 AM PT Interpreting Station ID: [id number]
== END ==
LOC: MAMMO 14:19
PROVIDERS: PCP Internal Medicine; Referring Provider Internal Medicine; Visit Provider Internal Medicine
DX: Z12.31 Encounter for screening mammogram for malignant neoplasm of breast (principal); R92.343 Mammographic extreme density, bilateral breasts; R92.1 Mammographic calcification found on diagnostic imaging of breast; Z85.3 Personal history of malignant neoplasm of breast
CPT/HCPCS: 77063; 77067